=== PATIENT | male | born 1965 | race Caucasian/White ===

== ENCOUNTER 2017-02-13 07:39 | Day surgery (SDC) | payer BC ==
[2017-02-12 09:10] VITALS: BMI 29.9
--- NOTE | 2017-02-13 07:35 | P.GSHP ---
History of Present Illness H&P Date: 02/13/17 CHIEF COMPLAINT: Colon screen HISTORY OF PRESENT ILLNESS: The patient is a 51-year-old male who presents for colon screen. Lower endoscopy was offered for further evaluation and management. PAST MEDICAL HISTORY: Please see list. PAST SURGICAL HISTORY: Please see list. MEDICATIONS: Please see list. ALLERGIES: Please see list. SOCIAL HISTORY: No illicit drug use FAMILY HISTORY: No reports of Crohn disease or ulcerative colitis. REVIEW OF ORGAN SYSTEMS: CONSTITUTIONAL: No reports of fevers or chills. PHYSICAL EXAM: VITAL SIGNS: Stable GENERAL: Well-developed pleasant in no acute distress. HEENT: No scleral icterus. Extraocular movements grossly intact. Moist buccal mucosa. NECK: Supple without lymphadenopathy. CHEST: Unlabored respirations. Equal bilateral excursions. CARDIOVASCULAR: Regular rate and rhythm. Distal 2+ pulses. ABDOMEN: Soft, nontender, nondistended. MUSCULOSKELETAL: No clubbing, cyanosis, or edema. ASSESSMENT: 1. Colon screen. PLAN: 1. Recommend proceeding with a lower endoscopy Past Medical History Additional Past Medical History / Comment(s): LOWER BACK PAIN - SEES CHIROPRACTOR PRN., SNORES. History of Any Multi-Drug Resistant Organisms: None Reported Past Surgical History: No Surgical Hx Reported Past Anesthesia/Blood Transfusion Reactions: Motion Sickness Additional Past Anesthesia/Blood Transfusion Reaction / Comment(s): HAS NEVER RECEIVED ANESTHESIA. Past Psychological History: No Psychological Hx Reported Smoking Status: Former smoker Past Alcohol Use History: None Reported Additional Past Alcohol Use History / Comment(s): QUIT SMOKING 2002. SMOKED 1/ 2 PPD OR LESS. SMOKED 12-15 YEARS. Past Drug Use History: None Reported - Past Family History Father Family Medical History: Cancer Additional Family Medical History / Comment(s): PROSTATE CANCER Medications and Allergies Home Medications Medication Instructions Recorded Confirmed Type Aspirin 650 mg PO DAILY PRN 02/12/17 02/12/17 History Allergies Allergy/AdvReac Type Severity Reaction Status Date / Time No Known Allergies Allergy Verified 02/12/17 09:03
[~2017-02-13 07:39] MED LIST: LACTATED RINGERS 1,000 ML IV SCH
[2017-02-13 07:51] VITALS: TEMP 97.5
[2017-02-13] MEDS ORDERED: LIDOCAINE 1% 20 ML VIAL (10MG/ML) FOR IV START SQ ONE (07:54)
[2017-02-13] MEDS ORDERED: MIDAZOLAM 2 MG/2 ML VIAL ONE (08:14)
[2017-02-13] MEDS ORDERED: ePHEDrine 50 MG/ML 1 ML AMP ONE (08:14)
[2017-02-13] MEDS ORDERED: fentaNYL (PF) 50 MCG/ML 2 ML AMP ONE (08:14)
[2017-02-13] MEDS ORDERED: PROPOFOL 10 MG/ML 20 ML VIAL IV ONE (08:14)
--- NOTE | 2017-02-13 08:43 | P.PCN ---
Date of Procedure: 02/13/17 Preoperative Diagnosis: Postoperative Diagnosis: Procedure(s) Performed: Implants: Indications for Procedure: Operative Findings: Description of Procedure: PREOPERATIVE DIAGNOSIS: Colonoscopy screening, initial. POSTOPERATIVE DIAGNOSIS: Colonoscopy screening, initial. Colitis along the sigmoid colon. Rectal adenoma. OPERATION: Colonoscopy to the ileocecal valve and appendiceal orifice. Colonoscopy with cold forceps biopsies along ileocecal valve and sigmoid colon. Colonoscopy with snare polypectomy at 10 cm from the Amer verge. SURGEON: Chloe Christianson MD. ANESTHESIA: MAC. INDICATIONS: The patient is a 51-year-old male who presents for colonoscopy screening. Benefits and risks were described and informed consent was obtained. DESCRIPTION OF PROCEDURE: The patient had undergone Gatorade, MiraLAX and Dulcolax prep. He had been brought into the operating room and laid in the left lateral decubitus position. After adequate intravenous sedation, the rectum was examined with 2% lidocaine jelly. The prostate was smooth without nodularity. No external hemorrhoids were encountered. The rectal tone was within normal limits. No lesions were palpated in the rectal vault. An Olympus colonoscope was advanced until the ileocecal valve and appendiceal orifice were clearly viewed. The prep was excellent with clear visualization of the mucosal folds. The scope was removed with visualization of each mucosal fold. Focal hyperemia was found along the sigmoid colon without large diverticuli. Rectal polyp of 4 mm in size adenoma was snare polypectomy to completion. Grade 1 internal hemorrhoids without active bleeding or inflammation was found. The colon was desufflated. The patient had tolerated the procedure well. Withdrawal time was over 6 minutes. FINDINGS: Internal hemorrhoids, grade 1. No external prolapsed hemorrhoids. No arteriovenous malformations. No [place] diverticular disease. Rectal polyp of 4 mm in size adenoma was snare polypectomy to completion. Colitis with hyperemia identified along the sigmoid colon. RECOMMENDATIONS: Lower endoscopy in 3 years (2019) for high risk colon adenoma. Plan - Discharge Summary New Discharge Prescriptions: No Action Aspirin 650 mg PO DAILY PRN PRN Reason: Pain Discharge Medication List Aspirin 650 mg PO DAILY PRN 02/12/17 [History] Follow up Appointment(s)/Referral(s): Chloe Christianson MD [STAFF PHYSICIAN] - 03/05/17 Patient Instructions/Handouts: Colorectal Polyps (DC) Activity/Diet/Wound Care/Special Instructions: Repeat colonoscopy in 3 years, 2019. Discharge Disposition: HOME SELF-CARE
[2017-02-13 09:08] VITALS: BP 118/70; PULSE 93; RESP 16
== END 2017-02-13 09:15 | disposition home or self-care (01) ==
LOC: ORWHC2ENDO 07:39
PROVIDERS: ATTEND Surgery Plastic and Reconstructive Surgery
DX: Z12.11 Encounter for screening for malignant neoplasm of colon (principal); D12.8 Benign neoplasm of rectum; K52.9 Noninfective gastroenteritis and colitis, unspecified; K64.0 First degree hemorrhoids; Z79.82 Long term (current) use of aspirin; Z87.891 Personal history of nicotine dependence
CPT/HCPCS: 88305; 45380; 45385; J2250; J3010; J2704